=== PATIENT | female | born 1995 | race Caucasian/White ===

== ENCOUNTER 2016-09-04 13:14 | Emergency (ER) | payer SELFPAY ==
--- NOTE | 2016-09-04 15:15 | ER Document Report ---
ED General - General Chief Complaint: Toothache Stated Complaint: TOOTH PAIN Information source: Patient TRAVEL OUTSIDE OF THE [place] IN LAST 30 DAYS: No - HPI Onset: Last week - Related Data Allergies/Adverse Reactions: No Known Allergies Allergy (Verified 09/04/16 13:34) Home Medications: Current Home Medications No Home Medications 09/04/16 [History] Past Medical History - Social History Smoking Status: Current Some Day Smoker Chew tobacco use (# tins/day): No Frequency of alcohol use: None Drug Abuse: None Family History: Reviewed & Not Pertinent Patient has suicidal ideation: No Patient has homicidal ideation: No Neurological Medical History: Reports: Hx Migraine - Immunizations Immunizations up to date: Yes Hx Diphtheria, Pertussis, Tetanus Vaccination: Yes Review of Systems - Review of Systems Constitutional: No symptoms reported EENT: No symptoms reported Cardiovascular: No symptoms reported Respiratory: No symptoms reported Gastrointestinal: No symptoms reported Genitourinary: No symptoms reported Female Genitourinary: No symptoms reported Musculoskeletal: No symptoms reported Skin: No symptoms reported Hematologic/Lymphatic: No symptoms reported Neurological/Psychological: No symptoms reported Physical Exam - Vital signs Vitals: Temp Pulse Resp BP Pulse Ox 98.2 F 70 16 115/59 L 99 09/04/16 13:38 09/04/16 13:38 09/04/16 13:38 09/04/16 13:38 09/04/16 13:38 Interpretation: Normal - General General appearance: Appears well, Alert - HEENT Head: Normocephalic, Atraumatic Eyes: Normal Pupils: PERRL Teeth diagram: 1 - decay inflamed gums - Respiratory Respiratory status: No respiratory distress Chest status: Nontender Breath sounds: Normal Chest palpation: Normal - Cardiovascular Rhythm: Regular Heart sounds: Normal auscultation Murmur: No - Abdominal Inspection: Normal Distension: No distension Bowel sounds: Normal Tenderness: Nontender Organomegaly: No organomegaly - Back Back: Normal, Nontender - Extremities General upper extremity: Normal inspection, Nontender, Normal color, Normal ROM , Normal temperature General lower extremity: Normal inspection, Nontender, Normal color, Normal ROM , Normal temperature, Normal weight bearing. No: Leyda's sign - Neurological Neuro grossly intact: Yes Cognition: Normal Orientation: AAOx4 Dillon Coma Scale Eye Opening: Spontaneous Monroe Coma Scale Verbal: Oriented Monroe Coma Scale Motor: Obeys Commands Dillon Coma Scale Total: 15 Speech: Normal Motor strength normal: LUE, RUE, LLE, RLE Sensory: Normal - Psychological Associated symptoms: Normal affect, Normal mood - Skin Skin Temperature: Warm Skin Moisture: Dry Skin Color: Normal Course - Vital Signs Vital signs: Temp Pulse Resp BP Pulse Ox 98.2 F 70 16 115/59 L 99 09/04/16 13:38 09/04/16 13:38 09/04/16 13:38 09/04/16 13:38 09/04/16 13:38 Discharge - Discharge Clinical Impression: Dental decay Disposition: HOME, SELF-CARE Additional Instructions: Dental Infection or Abscess You have an infection, perhaps an abscess (pus formation) of the gum around one of your teeth, which is probably decayed. If there is an abscess, it may drain on its own or it may need to be opened or lanced. Severe swelling or drainage around a tooth usually means a deep dental abscess which usually requires evaluation and treatment by a dentist or oral surgeon. Antibiotics may be prescribed while awaiting dental treatment. If you develop high fever with chills, worsening pain, or increasing swelling in the area, see a dentist or oral surgeon immediately or return to the Emergency Department immediately. Prescriptions: Penicillin V Potassium [Penicillin Vk 500 mg Tablet] 500 mg PO TID #30 tablet
[2016-09-04 15:44] VITALS: BP 110/55
== END 2016-09-04 15:44 | disposition home or self-care (01) ==
LOC: ER 13:14
DX: K02.9 Dental caries, unspecified (principal); F17.200 Nicotine dependence, unspecified, uncomplicated
CPT/HCPCS: 99282

== ENCOUNTER 2016-12-04 02:50 | Outpatient (CLI) | payer MEDICAID ==
[2016-12-04 03:22] LABS: APPEARANCE,URINE SLIGHTLY-CLOUDY; BILIRUBIN,URINE NEGATIVE (NEGATIVE); GLUCOSE, URINE NEGATIVE (NEGATIVE); KETONES,URINE NEGATIVE (NEGATIVE); LEUKOCYTE ESTERASE,URINE LARGE (NEGATIVE); NITRITE,URINE NEGATIVE (NEGATIVE); PROTEIN,URINE NEGATIVE (NEGATIVE); URINE SPECIFIC GRAVITY 1.008; UROBILINOGEN,URINE NEGATIVE mg/dL (<2.0)
[2016-12-04 03:37] LABS: URINE BARBITURATES SCREEN NEGATIVE; URINE METHADONE SCREEN NEGATIVE; URINE OPIATES LOW NEGATIVE; URINE PHENCYCLIDINE SCREEN NEGATIVE
[2016-12-04] MEDS ORDERED: OXYTOCIN/NORMAL SALINE 20 UNIT/1,000 ML RTUINJ ONE (07:17)
[2016-12-04] MEDS ORDERED: PROPOFOL INJ 200 MG/20 ML VIAL IV ONE (07:18)
[2016-12-04] MEDS ORDERED: OXYTOCIN 10 UNIT/ML VIAL ONE (07:18)
[2016-12-04] MEDS ORDERED: FENTANYL CITRATE INJ/PF 100 MCG/2 ML AMPUL ONE ×2 (07:18→07:19)
[2016-12-04] MEDS ORDERED: MIDAZOLAM 2 MG/2 ML INJ ONE (07:18)
[2016-12-04] MEDS ORDERED: MORPHINE SULFATE 10 MG/ML INJ ONE (07:18)
[2016-12-04] MEDS ORDERED: EPHEDRINE SULFATE INJ 50 MG/1 ML AMPULE ONE (07:18)
--- NOTE | 2016-12-06 15:29 | L&D Discharge Summary ---
OB Discharge Summary Datetime Report Generated by CPN: 12/06/2016 15:28 DISCHARGE DIAGNOSIS Diagnosis/Symptoms: Other Diagnoses/Symptoms Other: Labor check discharged. Patient admitted for previously scheduled . Gestation: 40.4 Number of Babies in Womb: 1 Parity: 0 DIET/ACTIVITY/RESTRICTIONS Diet: Restricted, Specify Diet Restrictions: NPO Activity: May Be Up to Bathroom TEACHING/INSTRUCTIONS/REFERRALS Referrals: None DISCHARGE INFORMATION Discharged AMA: No Discharge Date/Time: 12/04/2016 03:56 Discharged To: Home Discharge Provider Name: Dr. Thompson Accompanied By: family Discharge Method: Wheelchair Condition: Stable
--- NOTE | 2016-12-09 13:54 | Antepartum Discharge Summary ---
Antepartum DC Datetime Report Generated by CPN: 12/09/2016 13:53 Diet: Restricted, Specify (12/04/2016 03:54:Juani Berumen RN) Diet Restrictions: NPO (12/04/2016 03:54:Juani Berumen RN) Activity: May Be Up to Bathroom (12/04/2016 03:54:Juani Berumen RN) Referrals: None (12/04/2016 03:54:Juani Berumen RN) Discharged AMA: No (12/04/2016 03:54:Juani Berumen RN) Discharge Date/Time: 12/04/2016 03:56 (12/04/2016 03:54:Juani Berumen RN) Discharged To: Home (12/04/2016 03:54:Juani Berumen RN) Discharge Provider Name: Dr. Thompson (12/04/2016 03:54:Juani Berumen RN) Accompanied By: family (12/04/2016 03:54:Juani Berumen RN) Discharge Method: Wheelchair (12/04/2016 03:54:Juani Berumen RN) Condition: Stable (12/04/2016 03:54:Juani Berumen RN)
--- NOTE | 2016-12-09 13:57 | L&D Discharge Summary ---
OB Discharge Summary Datetime Report Generated by CPN: 12/09/2016 13:56 DISCHARGE DIAGNOSIS Diagnosis/Symptoms: Other Diagnoses/Symptoms Other: Labor check discharged. Patient admitted for previously scheduled . Gestation: 40.5 Number of Babies in Womb: 1 Parity: 0 DIET/ACTIVITY/RESTRICTIONS Diet: Restricted, Specify Diet Restrictions: NPO Activity: May Be Up to Bathroom TEACHING/INSTRUCTIONS/REFERRALS Referrals: None DISCHARGE INFORMATION Discharged AMA: No Discharge Date/Time: 12/04/2016 03:56 Discharged To: Home Discharge Provider Name: Dr. Thompson Accompanied By: family Discharge Method: Wheelchair Condition: Stable
--- NOTE | 2016-12-09 14:07 | L&D Flow Sheet ---
LD Flowsheet Datetime Report Generated by CPN: 12/09/2016 14:07 Datetime: 12/04/2016 03:30 Monitor Mode: External (Juani Lattibeaudeir, RN) Frequency (min): 1-5 (Juani Lattibeaudeir, RN) Quality: Moderate (Juani Lattibeaudeir, RN) Duration (sec): 50-90 (Juani Lattibeaudeir, RN) Resting Tone (Palpate): Relaxed (Juani Lattibeaudeir, RN) Monitor Mode: External US (Juain Lattibeaudeir, RN) FHR Baseline Rate : 125 (Juani Lattibeaudeir, RN) Variability: Moderate 6-25 bpm (Juani Lattibeaudeir, RN) Accelerations: 15X15 (Juani Lattibeaudeir, RN) Decelerations: Early (Juani Lattibeaudeir, RN) Datetime: 12/04/2016 03:14 Dilatation (cm): 3.0 (Juani Lattibeaudeir, RN) Effacement (%): 80 (Juani Lattibeaudeir, RN) Station: -2 (Juani Lattibeaudeir, RN) Exam by: Willy Berumen RN (Juani Lattibeaudeir, RN) Vaginal Bleeding: None (Juani Lattibeaudeir, RN) Cervix, Consistency: Soft (Juani Lattibeaudeir, RN) Cervix, Position: Posterior (Juani Lattibeaudeir, RN) Datetime: 12/04/2016 03:06 NBP Sys/Lauren/Mean (mmHg): 130 (QS system process) : 72 (QS system process) : 90 (QS system process) Pulse: 84 (QS system process) Temperature (F): 98.1 (Juani Lattibeaudeir, RN) Temperature Route: Oral (Juani Lattibeaudeir, RN) Datetime: 12/04/2016 02:56 Stage of : Antepartum (Juani Berumen RN) Pain Scale: 3 (Juani Berumen RN) Pain Presence: Intermittent (Juani Berumen RN) Pain Type: Contraction (Juani Berumen RN) Pain Location: Abdomen; Back (Juani Berumen RN) Pain Coping: Breathing Through Contractions (Juani Berumen RN) Membrane Status: Intact (Juani Berumen RN) Vaginal Bleeding: None (Juani Berumen RN) Dilatation (cm): 3-4 cms (Juani Berumen RN) Effacement: >80_ effaced (Juani Berumen RN) Station: minus 2 (Juani Berumen RN) Consistency: Soft (Juani Berumen RN) Position: Posterior (Juain Berumen RN) Level of Consciousness: Fully Conscious (Juani Berumen RN) DTR's/Clonus: DTRs 2+; No Clonus (Juani Berumen RN) Headache: Denies (Juani Berumen RN) Breath Sounds, Left: Clear and Equal (Juani Berumen RN) Breath Sounds, Right: Clear and Equal (Juani Berumen, RN) Nausea/Vomiting: Denies (Juani Berumen RN) RUQ Epigastric Pain: Denies (Juani Berumen RN) Patient Position/Activity: High Fowlers (Juani Berumen RN)
== END 2016-12-04 03:52 | disposition other institution (70) ==
LOC: LC 02:50
PROVIDERS: ATTEND Obstetrics & Gynecology
PROC: 4A1HXCZ Monitoring of Products of Conception, Cardiac Rate, External Approach (ICD-10-PCS; principal; 2016-12-04)
DX: O48.0 Post-term pregnancy (principal); Z3A.40 40 weeks gestation of pregnancy
CPT/HCPCS: 59025; 81005; 80307; J2250; J3490; J3010; J2270; J2590 ×2; J2704

== ENCOUNTER 2016-12-04 03:56 | Inpatient (IN) | payer MEDICAID ==
[2016-12-04] MEDS ORDERED: RINGERS SOLUTION,LACTATED 1,000 ML IV ONE (03:57)
[2016-12-04] MEDS ORDERED: CEFAZOLIN 2 GM/D5W RTU 50 ML IV PRN (04:17)
[2016-12-04] MEDS ORDERED: CITRIC ACID/SODIUM CITRATE ORAL SOLN 15 ML UDCUP PO PRN (04:17)
[2016-12-04] MEDS: RINGERS SOLUTION,LACTATED 1,000 ML IV PRN ×2 (05:01→10:45)
[2016-12-04 05:13] LABS: ABSOLUTE BASOPHILS # (AUTO) 0.1 10^3/uL (0.0-0.2); ABSOLUTE EOSINOPHILS # (AUTO) 0.1 10^3/uL (0.0-0.6); ABSOLUTE MONOCYTES (AUTO) 0.8 10^3/uL (0.1-1.4); ABSOLUTE NEUT (AUTO) 13.7 10^3/uL (1.7-8.2); BASOPHILS % (AUTO) 0.3 % (0-2); EOSINOPHILS % (AUTO) 0.5 % (0-6); HEMATOCRIT 37.9 % (36.0-47.0); HEMOGLOBIN 13.4 g/dL (12.0-15.5); HGB HCT DIFFERENCE 2.3; MEAN CORPUSCULAR HGB CONC 35.2 g/dL (32.0-36.0); MEAN CORPUSCULAR VOLUME 94 fl (80-97); MONOCYTES % (AUTO) 4.7 % (3-13); RED BLOOD COUNT 4.04 10^6/uL (3.72-5.28); RED CELL DISTRIBUTION WIDTH 13.7 % (11.5-14.0); SEGMENTED NEUTROPHILS % (AUTO) 77.5 % (42-78); WHITE BLOOD COUNT 17.7 10^3/uL (4.0-10.5)
[2016-12-04] MEDS ORDERED: MORPHINE SULFATE 10 MG/ML INJ ONE (05:13)
[2016-12-04] MEDS ORDERED: METHYLERGONOVINE MALEATE INJ/PF 0.2 MG/1 ML AMPULE ONE (08:21)
[2016-12-04] MEDS ORDERED: MISOPROSTOL 0.2 MG TABLET ONE (08:22)
[2016-12-04] MEDS ORDERED: ONDANSETRON HCL INJ/PF 4 MG/2 ML SDV IV PRN (08:37)
[2016-12-04] MEDS ORDERED: FENTANYL CITRATE INJ/PF 100 MCG/2 ML AMPUL IV PRN ×3 (08:37)
[2016-12-04] MEDS ORDERED: PROMETHAZINE HCL INJ 25 MG/1 ML VIAL IV PRN ×3 (08:37→09:11)
[2016-12-04] MEDS ORDERED: MORPHINE SULFATE 10 MG/ML INJ IV PRN (08:37)
[2016-12-04] MEDS ORDERED: DIPHENHYDRAMINE HCL 50 MG/ML VIAL IV PRN (08:37)
[2016-12-04] MEDS ORDERED: MEPERIDINE HCL/PF INJ 25 MG/1 ML DISP.SYRIN IV PRN (08:37)
[2016-12-04] MEDS ORDERED: ACETAMINOPHEN 100 ML IV ONE (09:07)
[2016-12-04] MEDS ORDERED: OXYTOCIN/NORMAL SALINE 1,000 ML IV PRN (09:11)
[2016-12-04] MEDS ORDERED: ACETAMINOPHEN 325 MG TABLET PO PRN (09:11)
[2016-12-04] MEDS ORDERED: SIMETHICONE 80 MG TAB.CHEW PO PRN (09:11)
[2016-12-04] MEDS ORDERED: ACETAMINOPHEN 100 ML IV PRN (09:11)
[2016-12-04] MEDS ORDERED: MEASLES,MUMPS&RUBELLA VACC/PF 0.5 ML VIAL SUBCUT PRN (09:11)
[2016-12-04] MEDS ORDERED: OXYCODONE-ACETAMINOPHEN 5-325 MG TABLET PO PRN (09:11)
[2016-12-04] MEDS ORDERED: HYDROMORPHONE HCL INJ/PF 2 MG/ML AMPULE IV PRN (09:11)
[2016-12-04] MEDS ORDERED: DIPH/PERTUSS(ACELL)/TETANUS VAC/PF 0.5 ML SYR (>=10YO) IM PRN (09:11)
--- NOTE | 2016-12-04 09:31 | Operative Report ---
Operative Report DATE OF SURGERY: 12/04/16 PREOPERATIVE DIAGNOSIS: Intrauterine at 40+ weeks with desire for primary elective POSTOPERATIVE DIAGNOSIS: Intrauterine at 40+ weeks with desire for primary elective OPERATION: Primary elective low transverse cervical section SURGEON: LESLY HARO ANESTHESIA: Spinal TISSUE REMOVED OR ALTERED: Placenta ESTIMATED BLOOD LOSS: 600 mL INTRAOPERATIVE FINDINGS: Kruse female in vertex presentation with clear amniotic fluid. Weight was 3230 grams. Apgars were 9 and 9. Normal uterus tube, tubes and ovaries. PROCEDURE: After discussing risks benefits and alternatives of the procedure and obtaining informed consent the patient was taken to the operating room where spinal anesthesia was achieved. She was positioned in the dorsal supine position with a leftward tilt. She was then prepped and draped in the usual standard fashion. Pfannenstiel skin incision was made and the abdomen was entered in layers in the usual standard fashion. The C safe knife was used to make a low- transverse hysterotomy incision. The surgeon's hand was entered into the hysterotomy incision and the vertex elevated and head delivered. Shoulders and body were delivered easily thereafter. Nasopharynx and oropharynx were bulb suctioned. Cord was clamped and cut. The was handed to pediatrics who were present. The placenta was manually extracted. The uterus was cleared of all clots and debris. The hysterotomy incision was closed with 0 Monocryl in a running locked fashion. A second layer closure was performed. 2 areas of oozing were oversewn with figure of 8 of 2-0 Vicryl. Excellent hemostasis was observed. The uterus tubes and ovaries were returned to the peritoneal cavity. The cavity was irrigated with saline and hemostasis was again assured. Peritoneum was closed with 2-0 Vicryl in a pursestring fashion. Rectus muscles were loosely reapproximated with interrupted stitches of 2-0 Vicryl. The subfascial space was inspected and noted to be hemostatic. The fascia was closed with #1 Vicryl. The subcutaneous tissues were hemostatic. The skin was closed in a subcuticular fashion with 4-0 Monocryl. An OpSite dressing was applied. The patient was taken to recovery in stable condition. All sponge needle lap and instrument counts were correct correct -2. The patient's uterus had been noted to be atonic during the procedure and she was given Methergine 1 amp IM and then Cytotec thousand micrograms at the rectum at the end of the procedure. The uterus was firm with this.
[2016-12-04] MEDS ORDERED: HYDROMORPHONE HCL INJ/PF 2 MG/ML AMPULE ONE (10:47)
[2016-12-04] MEDS: OXYCODONE-ACETAMINOPHEN 5-325 MG TABLET PO PRN ×3 (12:32→20:58)
[2016-12-04] MEDS ORDERED: DEXAMETHASONE SOD PHOSPHATE INJ 4 MG/1 ML VIAL ONE (13:45)
[2016-12-04] MEDS ORDERED: METOCLOPRAMIDE HCL INJ/PF 10 MG/2 ML SDV ONE (13:45)
[2016-12-04] MEDS ORDERED: KETOROLAC TROMETHAMINE 60 MG/2 ML SDV ONE (13:45)
[2016-12-04] MEDS ORDERED: PHENYLEPHRINE HCL INJ/PF 10 MG/1 ML SDV ONE (13:45)
[2016-12-04] MEDS ORDERED: ONDANSETRON HCL INJ/PF 4 MG/2 ML SDV ONE (13:45)
[2016-12-04] MEDS: PRENATAL VITAMIN W-O CA NO5/FE FUMARATE/FA CAPSULE PO SCH (15:43)
[2016-12-04] MEDS: DOCUSATE SODIUM 100 MG CAPSULE PO SCH ×2 (15:43→17:00)
[2016-12-04] MEDS: CEFAZOLIN 1 GM/D5W RTU 1 GM/50 ML RTUPB IV SCH ×2 (16:33→20:58)
[2016-12-04] MEDS: IBUPROFEN 800 MG TABLET PO SCH ×2 (17:00→23:38)
[2016-12-05] MEDS: CEFAZOLIN 1 GM/D5W RTU 1 GM/50 ML RTUPB IV SCH (02:34)
[2016-12-05] MEDS: OXYCODONE-ACETAMINOPHEN 5-325 MG TABLET PO PRN ×5 (02:39→22:38)
[2016-12-05] MEDS: IBUPROFEN 800 MG TABLET PO SCH ×4 (05:16→23:56)
[2016-12-05] MEDS: PRENATAL VITAMIN W-O CA NO5/FE FUMARATE/FA CAPSULE PO SCH (09:59)
[2016-12-05] MEDS: DOCUSATE SODIUM 100 MG CAPSULE PO SCH ×2 (10:00→18:13)
[2016-12-05 11:42] LABS: HEMATOCRIT 29.6 % (36.0-47.0); HEMOGLOBIN 10.2 g/dL (12.0-15.5); MEAN CORPUSCULAR HGB CONC 34.6 g/dL (32.0-36.0); MEAN CORPUSCULAR VOLUME 95 fl (80-97); RED CELL DISTRIBUTION WIDTH 13.9 % (11.5-14.0); WHITE BLOOD COUNT 15.4 10^3/uL (4.0-10.5)
--- NOTE | 2016-12-05 14:55 | PDOC PROGRESS REPORT ---
Subjective-OB Subjective: Post Delivery Day: 1 21 year old G2 now P1 s/p primary ppd1. .Ambulating, voiding and without difficulty, reports to feel sore when she gets up but doing great otherwise. Denies any needs at this time Physical Exam (OB) Vital Signs: Temp Pulse Resp BP Pulse Ox 98.5 F 80 16 122/73 99 12/05/16 08:00 12/05/16 08:00 12/05/16 08:00 12/05/16 08:00 12/05/16 08:00 Intake & Output 12/04/16 12/05/16 12/06/16 06:59 06:59 06:59 Intake Total 1900 Output Total 3400 Balance -1500 Weight 69.853 kg - General General Appearance: Appears well In distress: None - Dressing Removed: No - op site Incision: Dressing, Draining - old dime size spot of blood noted, no new blood today. - Lochia Lochia Amount: Small 10-25 ml Lochia Color: Rubra/Red - Abdomen Description: Soft Hernia Present: No Fundal Description: Firm, Midline Fundal Height: u/u - u/2 - Respiratory Respiratory Status: No respiratory distress - Extremities Upper extremity: Normal inspection Lower extremities: Normal inspection - Psychological Associated symptoms: Normal affect - bonding well with baby., Normal mood Objective-Diagnostic Laboratory: 12/05/16 10:38 12/05/16 10:38 WBC Cancelled RBC Cancelled Hgb Cancelled Hct Cancelled MCV Cancelled MCH Cancelled MCHC Cancelled RDW Cancelled Plt Count Cancelled Assessment and Plan(PN) - Assessment and Plan (1) Delivery by elective caesarean section Is this a current diagnosis for this admission?: YesPlan: continue stay (2) Anemia Qualifiers: Anemia type: unspecified type Qualified Code(s): D64.9 - Anemia, unspecified Is this a current diagnosis for this admission?: YesPlan: iron supplementation. Lab draw cancelled this am, obtained at 1100. see results. - Time Spent with Patient Time with patient: 15-25 minutes Medications reviewed and adjusted accordingly: Yes - Disposition Anticipated Discharge: Home Within: within 24 hours
[2016-12-06] MEDS: IBUPROFEN 800 MG TABLET PO SCH (05:48)
[2016-12-06 08:04] VITALS: BP 108/67
--- NOTE | 2016-12-06 09:13 | PDOC PROGRESS REPORT ---
Subjective-OB Subjective: Post Delivery Day: 21 year old. Denies any needs at this time Doing well, breast feeding, hsb at BS, ready to go home, scant lochia, passing gas, voiding, eating well, using inspirometer Physical Exam (OB) Vital Signs: Temp Pulse Resp BP Pulse Ox 97.9 F 74 15 108/67 99 12/06/16 09:09 12/06/16 09:09 12/06/16 09:09 12/06/16 09:09 12/06/16 09:09 Intake & Output 12/05/16 12/06/16 12/07/16 06:59 06:59 06:59 Intake Total 1900 500 Output Total 3400 Balance -1500 500 - Dressing Removed: No Incision: Dressing, Well Approximated Closure Type: Sutures - Lochia Lochia Amount: Scant < 10 ml Lochia Color: Rubra/Red - Abdomen Description: Soft, Round Hernia Present: No Fundal Description: Firm, Midline Fundal Height: u/u - u/2 Objective-Diagnostic Laboratory: 12/05/16 11:23 12/05/16 12/05/16 10:38 11:23 WBC Cancelled 15.4 H RBC Cancelled 3.10 L Hgb Cancelled 10.2 L D Hct Cancelled 29.6 L MCV Cancelled 95 MCH Cancelled 33.0 MCHC Cancelled 34.6 RDW Cancelled 13.9 Plt Count Cancelled 197 Assessment and Plan(PN) - Assessment and Plan (1) Anemia Qualifiers: Anemia type: unspecified type Qualified Code(s): D64.9 - Anemia, unspecified Is this a current diagnosis for this admission?: Yes (2) Delivery by elective caesarean section Is this a current diagnosis for this admission?: Yes - Time Spent with Patient Time with patient: Less than 15 minutes Medications reviewed and adjusted accordingly: Yes - Disposition Anticipated Discharge: Home Within: Other - home today
--- NOTE | 2016-12-06 09:18 | PDOC DISCHARGE SUMMARY ---
Final Diagnosis Discharge Date: 12/06/16 - Final Diagnosis (1) Anemia Is this a current diagnosis for this admission?: Yes (2) Delivery by elective caesarean section Is this a current diagnosis for this admission?: Yes Discharge Data - Discharge Medication Home Medications: Vit/Iron Fumarate/FA [ Tablet] 1 each PO DAILY 12/04/16 Valacyclovir HCl [Valtrex 500 mg Tablet] 1 tab PO DAILY 12/04/16 Ibuprofen [Motrin 800 mg Tablet] 800 mg PO Q6 #60 tablet 12/06/16 Oxycodone HCl/Acetaminophen [Percocet 5-325 mg Tablet] 1 tab PO Q4HP PRN #30 tablet 12/06/16 Gestational Age: 40 Reason(s) for Admission: Ceasarean Section-Primary Procedures: NST, Ultrasound Intrapartum Procedure(s): : Low Cervical, Transverse - [place] Data Baby 1 Female at 1 minute: 9 at 5 minutes: 9 Weight: 3.232 kg Home with Mother: Yes Complications: No - Diagnosis Test Laboratory: Temp Pulse Resp BP Pulse Ox 97.9 F 74 15 108/67 99 12/06/16 09:09 12/06/16 09:09 12/06/16 09:09 12/06/16 09:09 12/06/16 09:09 12/04/16 12/05/16 12/05/16 04:50 10:38 11:23 RBC 4.04 Cancelled 3.10 L Hgb 13.4 Cancelled 10.2 L D Hct 37.9 Cancelled 29.6 L - Discharge information/Instructions Discharge Activity: Activity As Tolerated, Balance Activity w/Rest, No Driving, No Lifting Over 10 Pounds, No Lifting/Push/Pulling, Pelvic Rest, No tub bath Discharge Diet: As Tolerated, Regular Disposition: HOME, SELF-CARE Follow up with: [facility] in: 1, Weeks
--- NOTE | 2016-12-09 13:54 | L&D Current Admission ---
Current Admit Datetime Report Generated by CPN: 12/09/2016 13:54 Current Admit Date/Time: 12/04/2016 03:56 (12/04/2016 02:56:Juani Berumen RN) Reason for Admission: Primary Section (12/04/2016 02:56:Juani Berumen RN) Chief Complaint: Contractions (12/04/2016 02:56:Juani Berumen RN) Medications During : Vitamin (12/04/2016 02:56:Juani Berumen RN) Method of Arrival: Wheelchair (12/04/2016 02:56:Juani Berumen RN) Admitted From: Home (12/04/2016 02:56:Juani Berumen RN) Reason for Induction: Not Applicable (12/04/2016 02:56:Juani Berumen RN) Records Available: Yes (12/04/2016 02:56:Juani Berumen RN) General Admission Information: Reviewed; Updated; Confirmed (12/04/2016 02:56:Juani Berumen RN) General Admission Reviewed By: Willy Berumen RN (12/04/2016 02:56:Juani Berumen RN) Valuables/Personal Effects: Purse/Wallet; Cell Phone; Jewelry (12/04/2016 02:56:Juani Berumen RN) Disposition of Belongings: Kept with Patient (12/04/2016 02:56:Juani Berumen RN) Advance Direct for Healthcare: No, and Wants No Information (12/04/2016 02:56:Juani Berumen RN) Durable Power of Academic Success Coordinator: No (12/04/2016 02:56:Juani Berumen RN) Living Will: No (12/04/2016 02:56:Juani Berumen RN) Organ Donor: Undecided (12/04/2016 02:56:Juani Berumen RN) Pt Rights Information Given: Yes (12/04/2016 02:56:Juani Berumen RN) Pt Understands Pt Rights: Yes (12/04/2016 02:56:Juani Berumen RN) Knowledge Level: Understands L_D Process; Understands Care Activities; Had Pre-Hospital Education; Understands Diagnosis (12/04/2016 02:56:Juani Berumen RN) Barriers to Learning: None (12/04/2016 02:56:Juani Berumen RN) Learning Readiness: Motivated (12/04/2016 02:56:Juani Berumen RN) Learns Best By: 1 to 1 Instruction; Reading; Videos; Demonstration (12/04/2016 02:56:Juani Berumen RN) Learning Needs: Labor and Delivery Process; Pain Management; Symptoms to Report; Treatment Plan (12/04/2016 02:56:Juani Berumen RN) Dom Viol Threatened/Hurt: No (12/04/2016 02:56:Juani Berumen RN) Hx of Abuse/Neglect past 2yrs: No (12/04/2016 02:56:Juani Berumen RN) Feel Unsafe Going Home: No (12/04/2016 02:56:Juani Berumen RN) Addt'l Observ Indicating Abuse: No (12/04/2016 02:56:Juani Berumen RN) Reason Unable to Complete Screen: N/A, Screen Completed (12/04/2016 02:56:Juani Berumen RN) Considered Personal Harm/Suicide: No (12/04/2016 02:56:Juani Berumen RN) Problem with Appetite >5 Days: No (12/04/2016 02:56:Juani Berumen RN) Chew/Swallow Difficulties: No (12/04/2016 02:56:Juani Berumen RN) Inappropriate Wt Gain/Loss: No (12/04/2016 02:56:Juani Berumen RN) Presence Skin Breakdown/Ulcer: No (12/04/2016 02:56:Juani Berumen RN) Special Diet: No (12/04/2016 02:56:Juani Berumen RN) Pt Requests Grain Inspector Visit: No (12/04/2016 02:56:Juani Berumen RN) Hx of Any of the Following?: N/A (12/04/2016 02:56:Juani Berumen RN) New Diagnosis of: N/A (12/04/2016 02:56:Juani Berumen RN) Requires Assist w/Ambulation: No (12/04/2016 02:56:Juani Berumen RN) Uses Assist Device to Ambulate: No (12/04/2016 02:56:Juani Berumen RN) Pt Requires Help w/ADL's: No (12/04/2016 02:56:Juani Berumen RN)
--- NOTE | 2016-12-09 13:55 | L&D Flow Sheet ---
LD Flowsheet Datetime Report Generated by CPN: 12/09/2016 13:55 Datetime: 12/04/2016 05:30 Monitor Mode: External (Juani Lattibeaudeir, RN) Frequency (min): 1-5 (Juani Lattibeaudeir, RN) Quality: Moderate (Juani Lattibeaudeir, RN) Duration (sec): 50-80 (Juani Lattibeaudeir, RN) Resting Tone (Palpate): Relaxed (Juani Lattibeaudeir, RN) Monitor Mode: External US (Juani Lattibeaudeir, RN) FHR Baseline Rate : 125 (Juani Lattibeaudeir, RN) Variability: Moderate 6-25 bpm (Juani Lattibeaudeir, RN) Accelerations: 15X15 (Juani Lattibeaudeir, RN) Decelerations: Early (Juani Lattibeaudeir, RN) Datetime: 12/04/2016 05:27 Analgesics/Sedatives: Morphine Sulfate (mg) @ 5 (Juanijoana Berumen, RN) Datetime: 12/04/2016 05:12 I/O Interventions: Up to BR (Juani Berumen, RN) Datetime: 12/04/2016 05:09 Communication Comments: Informed Dr. Monroe that I have orders for IV pain meds. Pt plans on continuing to get as scheduled but that pt did not do Pre-op and had not yet signed her anesthsia consent. Received orders to have pt sign anesthesia consent prior to giving pain medication. (Juani Berumen RN) Datetime: 12/04/2016 05:02 Communication Comments: Discussed options with patient regarding continuing with as previously scheduled vs vaginal and getting epidural. Pt would like to proceed with and receive IV meds for pain at this time. Received orders from Dr. Thompson to give patient Morphine 5mg IV once. (Juani Lattibeaarmandoir, RN) Datetime: 12/04/2016 05:00 Monitor Mode: External (Juani Lattibeaudeir, RN) Frequency (min): 1.5-5.5 (Juani Lattibeaudeir, RN) Quality: Moderate (Juani Lattibeaudeir, RN) Duration (sec): 60-110 (Juani Lattibeaudeir, RN) Resting Tone (Palpate): Relaxed (Juani Lattibeaudeir, RN) Monitor Mode: External US (Juani Lattibeaudeir, RN) FHR Baseline Rate : 125 (Juani Lattibeaudeir, RN) Variability: Moderate 6-25 bpm (Juani Lattibeaudeir, RN) Accelerations: 15X15 (Juani Lattibeaudeir, RN) Decelerations: Early (Juani Lattibeaudeir, RN) Datetime: 12/04/2016 04:52 IV/Blood Work: New IV Bag Hung (Zahida Mayorga, RN) Datetime: 12/04/2016 04:34 I/O Interventions: Up to BR (Juani Lattibeaudeir, RN) Datetime: 12/04/2016 04:30 Monitor Mode: External (Juani Lattibeaudeir, RN) Frequency (min): 1.5-3 (Juani Lattibeaudeir, RN) Quality: Moderate (Juani Lattibeaudeir, RN) Duration (sec): 60-130 (Juani Lattibeaudeir, RN) Resting Tone (Palpate): Relaxed (Juani Lattibeaudeir, RN) Monitor Mode: External US (Juani Lattibeaudeir, RN) FHR Baseline Rate : 125 (Juani Lattibeaudeir, RN) Variability: Moderate 6-25 bpm (Juani Lattibeaudeir, RN) Accelerations: 15X15 (Juani Lattibeaudeir, RN) Decelerations: Early (Juani Lattibeaudeir, RN) Datetime: 12/04/2016 04:20 Monitor Interventions for UA: [place] Adjusted (Juani Lattibeaudeir, RN) Datetime: 12/04/2016 04:00 Monitor Mode: External (Juani Lattibeaudeir, RN) Frequency (min): 2.5-6 (Juani Lattibeaudeir, RN) Quality: Moderate (Juani Lattibeaudeir, RN) Duration (sec): 60-100 (Juani Lattibeaudeir, RN) Resting Tone (Palpate): Relaxed (Juani Lattibeaudeir, RN) Monitor Mode: External US (Juani Lattibeaudeir, RN) FHR Baseline Rate : 120 (Juani Lattibeaudeir, RN) Variability: Moderate 6-25 bpm (Juani Lattibeaudeir, RN) Accelerations: 15X15 (Juani Lattibeaudeir, RN) Decelerations: Early (Juani Lattibeaudeir, RN) IV/Blood Work: IV Started; IV Bolus Started (Joceline Sharif RN) Patient Care Comments: 18 g started in R forearm with first attempt. (Joceline Sharif RN) Datetime: 12/04/2016 03:30 Monitor Mode: External (Juani Lattibeaudeir, RN) Frequency (min): 1-5 (Juani Lattibeaudeir, RN) Quality: Moderate (Juani Lattibeaudeir, RN) Duration (sec): 50-90 (Juani Lattibeaudeir, RN) Resting Tone (Palpate): Relaxed (Juani Lattibeaudeir, RN) Monitor Mode: External US (Juani Lattibeaudeir, RN) FHR Baseline Rate : 125 (Juani Lattibeaudeir, RN) Variability: Moderate 6-25 bpm (Juani Lattibeaudeir, RN) Accelerations: 15X15 (Juani Lattibeaudeir, RN) Decelerations: Early (Juani Lattibeaudeir, RN) Datetime: 12/04/2016 03:14 Dilatation (cm): 3.0 (Juani Lattibeaudeir, RN) Effacement (%): 80 (Juani Lattibeaudeir, RN) Station: -2 (Juani Lattibjuanir, RN) Exam by: Willy Berumen RN (Juani Lattibeaudeir, RN) Vaginal Bleeding: None (Juani Lattibeaudeir, RN) Cervix, Consistency: Soft (Juani Lattibeaudeir, RN) Cervix, Position: Posterior (Juani Lattibeaudeir, RN) Datetime: 12/04/2016 03:06 NBP Sys/Lauren/Mean (mmHg): 130 (QS system process) : 72 (QS system process) : 90 (QS system process) Pulse: 84 (QS system process) Temperature (F): 98.1 (Juani Lattibeaudeir, RN) Temperature Route: Oral (Juani Lattibeaudeir, RN) Datetime: 12/04/2016 02:56 Stage of : Antepartum (Juani Berumen RN) Pain Scale: 3 (Juani Berumen, RN) Pain Presence: Intermittent (Juani Berumen, RN) Pain Type: Contraction (Juani Berumen, RN) Pain Location: Abdomen; Back (Juani Berumen, RN) Pain Coping: Breathing Through Contractions (Juani Berumen, RN) Membrane Status: Intact (Juani Berumen, RN) Vaginal Bleeding: None (Juani Berumen, RN) Dilatation (cm): 3-4 cms (Juani Berumen, RN) Effacement: >80_ effaced (Juani Berumen, RN) Station: minus 2 (Juani Latsylvia, RN) Consistency: Soft (Juani Latsylvia, RN) Position: Posterior (Juani Berumen, RN) Total Jacinot's Score: 8 (QS system process) : 5-8 = Small percentage of induction failure (QS system process) Level of Consciousness: Fully Conscious (Juani Berumen, RN) DTR's/Clonus: DTRs 2+; No Clonus (Juani Latkaylieaudeir, RN) Headache: Denies (Juani Latsydeir, RN) Breath Sounds, Left: Clear and Equal (Juani Lattibeaudeir, RN) Breath Sounds, Right: Clear and Equal (Juani Lattibeaudeir, RN) Nausea/Vomiting: Denies (Juani Lattibeaudeir, RN) RUQ Epigastric Pain: Denies (Juani Kaufmanir, RN) Patient Position/Activity: High Fowlers (Juani Berumen, RN) LaborFlag: Antepartum (QS system process)
--- NOTE | 2016-12-09 13:55 | L&D General Admission ---
General Admit Datetime Report Generated by CPN: 12/09/2016 13:54 INFORMATION Patient Age: 21 (10/30/2016 11:33:QS system process) EDC: 12/01/2016 00:00 (12/04/2016 03:00:Zahida Mayorga RN) : 2 (12/04/2016 03:00:Zahida Mayorga RN) Para: 0 (12/04/2016 03:00:Zhaida Mayorga RN) Term: 0 (12/04/2016 03:00:Zahida Mayorga RN) : 0 (12/04/2016 03:00:Zahida Mayorga RN) Spontaneous Abortions: 1 (12/04/2016 03:00:Juani Berumen RN) Induced Abortions: 0 (12/04/2016 03:00:Juani Berumen RN) Livin (12/04/2016 03:00:Zahida Mayorga RN) Cesareans: 0 (12/04/2016 03:00:Zahida Mayorga RN) VBACs: 0 (12/04/2016 03:00:Zahida Mayorga RN) Ectopic: 0 (12/04/2016 03:00:Zahida Mayorga RN) Multiple Births: 0 (12/04/2016 03:00:Zahida Mayorga RN) Baby, Number in Womb: 1 (12/04/2016 03:00:Zahida Mayorga RN) CARE Primary Electric Motor Assembler: [facility] (12/04/2016 03:00:Zahida Mayorga RN) Electric Motor Assembler Other: [facility] (12/04/2016 03:00:Juani Berumen RN) Adequate Care: No (12/04/2016 03:00:Zahida Mayorga RN) Prepregnancy Weight (lb): 135 (12/04/2016 03:00:Juani Berumen RN) ALLERGIES Medication Allergy: No (12/04/2016 03:00:Zahida Mayorga RN) Medication Allergies: No Known Allergies (12/04/2016) (12/04/2016 03:00:QS system process) Medication Allergies: No Known Allergies (09/04/2016) (10/30/2016 11:33:QS system process) Latex Allergy: No Latex Allergies (12/04/2016 03:00:Zahida Mayorga RN) Food Allergies: None (12/04/2016 03:00:Zahida Mayorga RN) Environmental Allergies: None (12/04/2016 03:00:Zahida Mayorga RN) COMMUNICATION Primary Language: Lao (12/04/2016 03:00:Juani Berumen RN) Medical Tx Preferred Language: Lao (12/04/2016 03:00:Juani Berumen RN) Communication Barrier(s): None (12/04/2016 03:00:Juani Berumen RN) DEMOGRAPHICS Address: [address] [place] [id number] (12/04/2016 02:50:QS system process) Address: [address] [place] [phone] (10/30/2016 11:33:QS system process) Zipcode: [phone] (10/30/2016 11:33:QS system process) Home (10/30/2016 11:33:QS system process) SSN: [id number] (10/30/2016 11:33:QS system process) Next of Kin Name: TWIN RUTHERFORD (10/30/2016 11:33:QS system process) Next of Kin (10/30/2016 11:33:QS system process) Next of Kin Relationship: MO (10/30/2016 11:33:QS system process) Date of : 1995 (10/30/2016 11:33:QS system process) Marital Status: Single (10/30/2016 11:33:QS system process) Sex: Female (10/30/2016 11:33:QS system process) Race: (10/30/2016 11:33:QS system process) Ethnicity: Non- or (10/30/2016 11:33:QS system process) Latter-Day: None (10/30/2016 11:33:QS system process) DRUG AND ALCOHOL USE Alcohol: No (12/04/2016 03:00:Juani Berumen RN) Cigarettes: Current Everyday Smoker. [id number] (12/04/2016 03:00:Juani Berumen RN) Marijuana: No (12/04/2016 03:00:Juani Berumen RN) Cocaine: No (12/04/2016 03:00:Juani Berumen RN) Other Illicit Drugs: No (12/04/2016 03:00:Juani Berumen RN) VACCINE HISTORY Influenza Vaccine: No (12/04/2016 03:00:Juani Berumen RN) Pneumococcal Vaccine: No (12/04/2016 03:00:Juani Berumen RN) Tdap Vaccine: Yes (12/04/2016 03:00:Juani Berumen RN) Tdap Date: 10/02/2016 (12/04/2016 03:00:Juani Berumen RN) Hepatitis B Vaccine: Yes (12/04/2016 03:00:Juani Berumen RN) Flight Surgeon: [facility] (12/04/2016 03:00:Juani Berumen RN) Circumcision: N/A (12/04/2016 03:00:Juani Berumen RN) Classes Attended: No (12/04/2016 03:00:Juani Berumen RN) Tubal Ligation: No (12/04/2016 03:00:Juani Berumen RN) Tubal Authorization Signed: N/A (12/04/2016 03:00:Juani Berumen RN) Consent: N/A (12/04/2016 03:00:Juani Berumen RN) Consent Signed: Yes (12/04/2016 03:00:Juani Berumen RN) Pain Management Plans: Spinal (12/04/2016 03:00:Juani Berumen RN) Plans for Labor and Delivery: None (12/04/2016 03:00:Juani Berumen RN) Support Person: Donn (12/04/2016 03:00:Juani Berumen RN) Support Person Relationship: Significant Other (12/04/2016 03:00:Juani Berumen RN) Cultural/Spritual Practice: No (12/04/2016 03:00:Juani Berumen RN) Spir/Cult Dietary Needs: No (12/04/2016 03:00:Juani Berumen RN) LIVING SITUATION/DISCHARGE PLAN Living Arrangements: House (12/04/2016 03:00:Juani Berumen RN) Adequate Access to:: Electric; Heat; Refrigeration; Plumbing/Running water; Phone; Transportation (12/04/2016 03:00:Juani Berumen RN) WIC Program: Yes (12/04/2016 03:00:Juani Berumen RN) Discharge Machine Cementer Person: Donn (12/04/2016 03:00:Juani Berumen RN) Person to Help after Discharge: Donn (12/04/2016 03:00:Juani Berumen RN) Currently Using Commun Resources: Yes (12/04/2016 03:00:Juani Berumen RN) Outside Agency/Rn Women Services: Yes (12/04/2016 03:00:Juani Berumen RN) Car Seat for Discharge: Yes (12/04/2016 03:00:Juani Berumen RN) Adoption Requested: No (12/04/2016 03:00:Juani Berumen RN) Pt Contact w/ Post : N/A (12/04/2016 03:00:Juani Berumen RN) LABS Blood Type: O Positive (12/04/2016 03:00:Juani Berumen RN) Antibody Screen: Negative (12/04/2016 03:00:Juani Berumen RN) Rho(G) this : Not Applicable (12/04/2016 03:00:Juani Berumen RN) Hemoglobin: 13.4 (12/04/2016 04:50:QS system process) Hematocrit: 37.9 (12/04/2016 04:50:QS system process) MCV: 94 (12/04/2016 04:50:QS system process) Group Beta Strep: Negative (12/04/2016 03:00:Juani Berumen RN) Gonorrhea: Negative (12/04/2016 03:00:Juani Berumen RN) Chlamydia: Negative (12/04/2016 03:00:Juani Berumen RN) RPR/VDRL: Nonreactive (12/04/2016 03:00:Juani Berumen RN) HIV Results: Negative (12/04/2016 03:00:Juani Berumen RN) Hepatitis B: Negative (12/04/2016 03:00:Juani Berumen RN) Rubella: Immune (12/04/2016 03:00:Juani Berumen RN) Varicella: Non Susceptible (12/04/2016 03:00:Juani Berumen RN) Pap Test: Squamous Atypical (12/04/2016 03:00:Juani Berumen RN) OB/PREVIOUS HISTORY Previous Procedures: None (12/04/2016 03:00:Juani Berumen RN) Current Procedures: Ultrasound; NST (12/04/2016 03:00:Juani Berumen RN) History of Previous : No (12/04/2016 03:00:Juani Berumen RN) History of Gestational Diabetes: No (12/04/2016 03:00:Juani Berumen RN) History of PIH: No (12/04/2016 03:00:Juani Berumen RN) History of Incompetent Cervix: No (12/04/2016 03:00:Juani Berumen RN) History of Placenta Previa/Abrup: No (12/04/2016 03:00:Juani Berumen RN) History of Macrosomia: No (12/04/2016 03:00:Juani Berumen RN) History of IUGR: No (12/04/2016 03:00:Juani Berumen RN) History of Hemorrhage: No (12/04/2016 03:00:Juani Berumen RN) History of Loss/Stillborn: No (12/04/2016 03:00:Juani Berumen RN) History of : No (12/04/2016 03:00:Juani Berumen RN) History of D (Rh) Sensitization: No (12/04/2016 03:00:Juani Berumen RN) History Recurrent Loss/Stillborn: No (12/04/2016 03:00:Juani Berumen RN) History Depression/PP Depression: No (12/04/2016 03:00:Juani Berumen RN) History of Uterine Anomaly/MENDEZ: No (12/04/2016 03:00:Juani Berumen RN) History of Infertility: No (12/04/2016 03:00:Juani Berumen RN) History of ART Treatment: No (12/04/2016 03:00:Juani Berumen RN) History of MENDEZ: No (12/04/2016 03:00:Juani Berumen RN) Comments Obstetrical History: G1- SAB G2- Current (12/04/2016 03:00:Juani Berumen RN) MEDICAL HISTORY Med Hx Diabetes: No (12/04/2016 03:00:Juani Berumen RN) Med Hx Hypertension: No (12/04/2016 03:00:Juani Berumen RN) Med Hx Heart Disease: No (12/04/2016 03:00:Juani Berumen RN) Med Hx Autoimmune Disorder: No (12/04/2016 03:00:Juani Berumen RN) Med Hx Kidney Disease/UTI: No (12/04/2016 03:00:Juani Berumen RN) Med Hx Neurologic/Epilepsy: No (12/04/2016 03:00:Juani Berumen RN) Med Hx Psychiatric Disorders: No (12/04/2016 03:00:Juani Berumen RN) Med Hx Hepatitis/Liver Disease: No (12/04/2016 03:00:Juani Berumen RN) Med Hx Varicosities/Phlebitis: No (12/04/2016 03:00:Juani Berumen RN) Med Hx Thyroid Dysfunction: No (12/04/2016 03:00:Juani Berumen RN) Med Hx Trauma/Violence: No (12/04/2016 03:00:Juani Berumen RN) Med Hx Blood Transfusion: No (12/04/2016 03:00:Juani Berumen RN) Med Hx Pulmonary (Asthma,TB): No (12/04/2016 03:00:Juani Berumen RN) Med Hx Breast: No (12/04/2016 03:00:Juani Berumen RN) Med Hx HELP DESK TECHNICIAN Surgery: No (12/04/2016 03:00:Juani Berumen RN) Med Hx Hospitalization/Surgery: No (12/04/2016 03:00:Juani Berumen RN) Med Hx Anesthetic Complications: No (12/04/2016 03:00:Juani Berumen RN) Med Hx Abnormal Pap Smear: Yes (12/04/2016 03:00:Juani Berumen RN) Other Medical Diseases: Yes (12/04/2016 03:00:Juani Berumen RN) Med Hx Significant Family Hx: No (12/04/2016 03:00:Juani Berumen RN) Details of Med/Surg Hx: Abnormal pap-ASCUS neg HPV; Meningitis-2011 (Annotations: Data stored by N on behalf of user) (12/04/2016 03:00:Juani Berumen RN) INFECTIOUS HISTORY Inf Hx Gonorrhea: No (12/04/2016 03:00:Juani Berumen RN) Inf Hx Chlamydia: Yes (12/04/2016 03:00:Jauni Berumen RN) Inf Hx Syphilis: No (12/04/2016 03:00:Juani Berumen RN) Inf Hx HIV/AIDS: No (12/04/2016 03:00:Juani Berumen RN) Inf Hx Human Papilloma Virus: No (12/04/2016 03:00:Juani Berumen RN) Inf Hx Pt/Partner Genital Herpes: Yes (12/04/2016 03:00:Juani Berumen RN) Inf Hx Tuberculosis/Exposure: No (12/04/2016 03:00:Juani Berumen RN) Inf Hx Hepatitis B,C: No (12/04/2016 03:00:Juani Berumen RN) Inf Hx Rash or Viral Illness: No (12/04/2016 03:00:Juani Berumen RN) Details of Infectious Hx: +Chlamydia and Trich 09/2016- NADIA neg 10/2016 (12/04/2016 03:00:Juani Berumen RN) GENETIC HISTORY Gen Hx Age >=35 at QUE: No (12/04/2016 03:00:Juani Berumen RN) Gen Hx Thalassemia: No (12/04/2016 03:00:Juani Berumen RN) Gen Hx Congenital Heart Defect: No (12/04/2016 03:00:Juani Berumen RN) Gen Hx Neural Tube Defect: No (12/04/2016 03:00:Juani Berumen RN) Gen Hx Down's Syndrome: No (12/04/2016 03:00:Juani Berumen RN) Gen Hx Willam-Sachs: No (12/04/2016 03:00:Juani Berumen RN) Gen Hx Zain: No (12/04/2016 03:00:Juani Berumen RN) Gen Hx Familial Dysautonomia: No (12/04/2016 03:00:Juani Berumen RN) Gen Hx Sickle Cell Disease/Trait: No (12/04/2016 03:00:Juani Berumen RN) Gen Hx Hemophilia/Blood Disorder: No (12/04/2016 03:00:Juani Berumen RN) Gen Hx Muscular Dystrophy: No (12/04/2016 03:00:Juani Berumen RN) Gen Hx Cystic Fibrosis: No (12/04/2016 03:00:Juani Berumen RN) Gen Hx Huntingtons Chorea: No (12/04/2016 03:00:Juani Berumen RN) Gen Hx Mental Retardation/Autism: No (12/04/2016 03:00:Juani Berumen RN) Gen Hx Tested for Fragile X: No (12/04/2016 03:00:Juani Berumen RN) Gen Hx Other Inher/Chromosomal: No (12/04/2016 03:00:Juani Berumen RN) Gen Hx Maternal Metabolic DO: No (12/04/2016 03:00:Juani Berumen RN) Gen Hx Pt Father or FOB Defect: No (12/04/2016 03:00:Juani Berumen RN) Gen Hx Other Genetic History: No (12/04/2016 03:00:Juani Berumen RN) Gen Hx Drugs/Meds since LMP: No (12/04/2016 03:00:Juani Berumen RN)
--- NOTE | 2016-12-09 16:51 | L&D Discharge Summary ---
OB Discharge Summary Datetime Report Generated by CPN: 12/09/2016 16:50 DISCHARGE DIAGNOSIS Diagnosis/Symptoms: Other Diagnoses/Symptoms Other: Labor check discharged. Patient admitted for previously scheduled . Gestation: 40.5 Number of Babies in Womb: 1 Parity: 0 DIET/ACTIVITY/RESTRICTIONS Diet: Restricted, Specify Diet Restrictions: NPO Activity: May Be Up to Bathroom TEACHING/INSTRUCTIONS/REFERRALS Referrals: None DISCHARGE INFORMATION Discharged AMA: No Discharge Date/Time: 12/04/2016 03:56 Discharged To: Home Discharge Provider Name: Dr. Thompson Accompanied By: family Discharge Method: Wheelchair Condition: Stable
== END 2016-12-06 12:28 | disposition home or self-care (01) | DRG 766 ==
LOC: LR 03:56 → 2S 06:07
PROVIDERS: ADMIT Obstetrics & Gynecology; ATTEND Obstetrics & Gynecology
PROC: 10D00Z1 Extraction of Products of Conception, Low, Open Approach (ICD-10-PCS; principal; 2016-12-04 07:45)
DX: O82 Encounter for cesarean delivery without indication (principal); Z3A.40 40 weeks gestation of pregnancy; Z37.0 Single live birth; O99.02 Anemia complicating childbirth; D64.9 Anemia, unspecified
CPT/HCPCS: 1961; 36415; 85025; 85027; 86592; 86850; 86900; 86901; 88307; 94799; J0131; J0690; J1100; J1170; J1885; J2210; J2270; J2370; J2405; J2765; J7120